=== PATIENT | female | born 1940 | race Caucasian/White ===

== ENCOUNTER → 2017-04-13 14:47 | Outpatient (CLI) | payer MEDICARE, SELFPAY ==
[2017-04-13 15:48] LABS: Absolute Neutrophil Count 3.6 X10^3/uL (2.0-7.7); Basophil# 0.03 X10^3/uL; Basophil% 0.5 % (0-1); Eosinophil# 0.31 X10^3/uL; Hematocrit 40.6 % (37-47); Hemoglobin 13.3 g/dl (12.0-15.0); Mean Corp Hgb Conc 32.8 g/gl (32-36); Mean Corpuscular Volume 97.8 fL (81-99); Monocyte# 0.58 X10^3/uL; Monocyte% 9.4 % (0-10); Neutrophil # 3.62 X10^3/uL (2.7-7.7); Neutrophil % 58.9 % (47-70); POSITIVE COUNT NO; POSITIVE DIFFERENTIAL NO; POSITIVE MORPHOLOGY NO; Platelet Count 122 K/mm3 (150-450); RBC Distribution Width CV 13.3 % (11.6-14.6); RBC Distribution Width SD 46.3 fl (35.1-43.9); Red Blood Count 4.15 M/mm3 (4.2-5.4); White Blood Count 6.2 K/mm3 (4.4-11.0)
[2017-04-13 16:51] LABS: ALB/GLOB Ratio 1.1 RATIO (0.9-2.4); AST(SGOT) 15 U/L (15-37); Alanine Aminotransfer ALT/SGPT 22 U/L (13-56); Albumin, Serum 3.8 g/dL (3.2-5.0); Alkaline Phosphatase 91 U/L (45-117); Anion Gap 8 (5-15); BUN 32 mg/dL (7-18); BUN/Creat Ratio 30.5 RATIO (10-20); Calcium,Total 8.8 mg/dL (8.5-10.1); Chloride 105 mmol/L (98-107); Cholesterol 174 mg/dL (200); Creatinine, Serum 1.05 mg/dL (0.55-1.02); EST Glomerular Filtration Rate 54 mL/min (>60); Est Glom Filt Rate - Afr Amer 65 mL/min (>60); Globulin 3.5 g/dL (2.2-4.2); Glucose 86 mg/dL (70-110); High Density Lipoprotein 49 mg/dL; Potassium 4.6 mmol/L (3.5-5.1); Protein, Total 7.3 g/dL (6.4-8.2); Sodium Level 140 mmol/L (136-145); Thyroid Stim Hormone (TSH) 1.41 uIU/mL (0.358-3.74); Triglycerides 242 mg/dL; Very Low Density Lipoprotein 48 mg/dL (5-40)
[2017-04-14 03:56] LABS: Rapid Plasmin Reagin (RPR) NONREACTIVE (NONREACTIVE)
[2017-04-14 08:36] LABS: Vitamin B12 221 pg/mL (211-911); Vitamin D,25 Hydroxy 20.2 ng/mL (19.95-100.01)
== END ==
PROVIDERS: Visit Provider Family Medicine Geriatric Medicine
DX: E55.9 Vitamin D deficiency, unspecified (principal); G30.9 Alzheimer's disease, unspecified; I10 Essential (primary) hypertension; E78.4 Other hyperlipidemia
CPT/HCPCS: 36415; 80053; 80061; 82306; 82607; 82746; 84443; 85025; 86592

== ENCOUNTER → 2017-04-17 15:21 | Outpatient (CLI) | payer MEDICARE, SELFPAY ==
[2017-04-17 16:37] LABS: Homocysteine 12.9 umol/L (3.2-10.7)
== END ==
PROVIDERS: Family Provider Family Medicine Geriatric Medicine; PCP Family Medicine Geriatric Medicine; Visit Provider Family Medicine Geriatric Medicine
DX: E53.8 Deficiency of other specified B group vitamins (principal)
CPT/HCPCS: 36415; 83090

== ENCOUNTER → 2017-07-13 09:31 | Outpatient (CLI) | payer MEDICARE, SELFPAY ==
[2017-07-13 15:39] LABS: ALB/GLOB Ratio 0.9 RATIO (0.9-2.4); AST(SGOT) 14 U/L (15-37); Alanine Aminotransfer ALT/SGPT 16 U/L (13-56); Albumin, Serum 3.2 g/dL (3.2-5.0); Alkaline Phosphatase 95 U/L (45-117); Anion Gap 7 (5-15); BUN 30 mg/dL (7-18); BUN/Creat Ratio 22.6 RATIO (10-20); Calcium,Total 9.1 mg/dL (8.5-10.1); Chloride 107 mmol/L (98-107); Cholesterol 188 mg/dL (200); Creatinine, Serum 1.33 mg/dL (0.55-1.02); EST Glomerular Filtration Rate 41 mL/min (>60); Est Glom Filt Rate - Afr Amer 50 mL/min (>60); Globulin 3.5 g/dL (2.2-4.2); Glucose 105 mg/dL (74-106); High Density Lipoprotein 40 mg/dL; Potassium 5.4 mmol/L (3.5-5.1); Protein, Total 6.7 g/dL (6.4-8.2); Sodium Level 140 mmol/L (136-145); Thyroid Stim Hormone (TSH) 2.15 uIU/mL (0.358-3.74); Triglycerides 328 mg/dL; Very Low Density Lipoprotein 66 mg/dL (5-40)
[2017-07-13 15:49] LABS: Absolute Lymphocyte Count 1.13 X10^3/ul (0.83-4.51); Absolute Neutrophil Count 1.9 X10^3/uL (2.0-7.7); Basophil# 0.02 X10^3/uL; Basophil% 0.5 % (0-1); Eosinophil# 0.17 X10^3/uL; Eosinophils% 4.5 % (0-5); Hemoglobin 11.8 g/dl (12.0-15.0); Lymphocyte # 1.13 X10^3/ul (4.0); Lymphocyte % 30.1 % (19-41); Mean Corp Hgb Conc 31.9 g/gl (32-36); Mean Corpuscular Hgb 32.1 pg (27.0-32.0); Mean Corpuscular Volume 100.5 fL (81-99); Mean Platelet Vol. 10.3 fl (6.2-12.0); Monocyte# 0.56 X10^3/uL; Monocyte% 14.9 % (0-10); Neutrophil # 1.87 X10^3/uL (2.7-7.7); Neutrophil % 49.7 % (47-70); Platelet Count 114 K/mm3 (150-450); RBC Distribution Width CV 14.2 % (11.6-14.6); RBC Distribution Width SD 50.9 fl (35.1-43.9); Red Blood Count 3.68 M/mm3 (4.2-5.4); White Blood Count 3.8 K/mm3 (4.4-11.0)
[2017-07-13 15:53] LABS: POSITIVE COUNT NO; POSITIVE DIFFERENTIAL NO; POSITIVE MORPHOLOGY NO
[2017-07-14 08:40] LABS: Vitamin D,25 Hydroxy 21.5 ng/mL (29.95-100.01)
== END ==
PROVIDERS: Family Provider Family Medicine Geriatric Medicine; PCP Family Medicine Geriatric Medicine; Visit Provider Family Medicine Geriatric Medicine
DX: I10 Essential (primary) hypertension (principal); E55.9 Vitamin D deficiency, unspecified
CPT/HCPCS: 36415; 80053; 80061; 82306; 84443; 85025

== ENCOUNTER → 2017-10-19 14:15 | Outpatient (CLI) | payer MEDICARE, SELFPAY ==
[2017-10-19 18:13] LABS: ALB/GLOB Ratio 0.9 RATIO (0.9-2.4); AST(SGOT) 14 U/L (15-37); Alanine Aminotransfer ALT/SGPT 24 U/L (13-56); Albumin, Serum 3.4 g/dL (3.2-5.0); Alkaline Phosphatase 146 U/L (45-117); Anion Gap 11 (5-15); BUN 21 mg/dL (7-18); BUN/Creat Ratio 17.5 RATIO (10-20); Calcium,Total 9.2 mg/dL (8.5-10.1); Chloride 105 mmol/L (98-107); Cholesterol 215 mg/dL (200); EST Glomerular Filtration Rate 46 mL/min (>60); Est Glom Filt Rate - Afr Amer 56 mL/min (>60); Globulin 3.7 g/dL (2.2-4.2); Glucose 100 mg/dL (74-106); High Density Lipoprotein 49 mg/dL; Potassium 4.9 mmol/L (3.5-5.1); Protein, Total 7.1 g/dL (6.4-8.2); Sodium Level 143 mmol/L (136-145); Thyroid Stim Hormone (TSH) 1.81 uIU/mL (0.358-3.74); Triglycerides 293 mg/dL; Very Low Density Lipoprotein 59 mg/dL (5-40)
[2017-10-19 18:59] LABS: Hematocrit 42.2 % (37-47); Hemoglobin 13.1 g/dl (12.0-15.0); Mean Corpuscular Hgb 30.1 pg (27.0-32.0); Neutrophil % 67.5 % (47-70); POSITIVE COUNT NO; POSITIVE DIFFERENTIAL NO; POSITIVE MORPHOLOGY NO; Platelet Count 146 K/mm3 (150-450); RBC Distribution Width SD 49.8 fl (35.1-43.9); Red Blood Count 4.35 M/mm3 (4.2-5.4)
[2017-10-19 19:00] LABS: Absolute Neutrophil Count 4.1 X10^3/uL (2.0-7.7); Basophil# 0.02 X10^3/uL; Basophil% 0.3 % (0-1); Eosinophil# 0.17 X10^3/uL; Eosinophils% 2.8 % (0-5); Lymphocyte % 19.9 % (19-41); Monocyte# 0.56 X10^3/uL; Monocyte% 9.3 % (0-10); Neutrophil # 4.08 X10^3/uL (2.7-7.7)
[2017-10-20 08:49] LABS: Vitamin D,25 Hydroxy 20.6 ng/mL (29.95-100.01)
== END ==
PROVIDERS: Family Provider Family Medicine Geriatric Medicine; PCP Family Medicine Geriatric Medicine; Visit Provider Family Medicine Geriatric Medicine
DX: E55.9 Vitamin D deficiency, unspecified (principal); I10 Essential (primary) hypertension; E78.4 Other hyperlipidemia
CPT/HCPCS: 36415; 80053; 80061; 82306; 84443; 85025

== ENCOUNTER 2017-12-27 23:05 | Inpatient (IN) | payer MEDICARE, SELFPAY ==
[2017-12-27 23:06] VITALS: BP 185/111; PULSE 92; RESP 30; TEMP 36.7; O2SAT 82; BMI 25.6
--- NOTE | 2017-12-27 23:15 | EKG12_ITS ---
Test Reason : SOB Blood Pressure : / mmHG Vent. Rate : 107 BPM Atrial Rate : 107 BPM P-R Int : 182 ms QRS Dur : 114 ms QT Int : 346 ms P-R-T Axes : 058 -08 130 degrees QTc Int : 461 ms Sinus tachycardia Incomplete left bundle branch block Left ventricular hypertrophy with repolarization abnormality Abnormal ECG Confirmed by ANGEL NAIK ([id number]), technical writer and editor KJ DELGADO ([id number]) on 01/09/2018 8:28:36 AM Referred By: LOYDA Confirmed By:ANGEL NAIK
--- NOTE | 2017-12-27 23:15 | RAD_ITS ---
STUDY: X-RAY CHEST REASON FOR EXAM: Female, 77 years old. Shortness of breath TECHNIQUE: Martinez frontal view COMPARISON: None. FINDINGS: The lungs are expanded. Interstitial prominence bilaterally, more significant at the lung bases. Early left basilar infiltrate cannot be excluded. Normal size heart. Normal mediastinum and jacki. There is prominence of the central pulmonary arteries. Calcified aortic arch and descending thoracic aorta. Degenerative changes of the thoracic spine. Normal visualized ribs, clavicles, and shoulders. There is no demonstrated abnormality of the visualized soft tissue structures of the upper abdomen. RAD/Chest 1 View (Portable) IMPRESSION: Central pulmonary vascular prominence. Interstitial densities bilaterally, more significantly in the lung bases. Early left basilar infiltrate cannot be excluded. Electronically Signed: Niraj Matute DO at 23:44 EDT Tel [phone], Service support ,
[2017-12-27 23:17] VITALS: O2SAT 83
[2017-12-27 23:18] VITALS: O2SAT 94
[2017-12-27 23:23] VITALS: BP 183/103; PULSE 110; RESP 31; O2SAT 96
[2017-12-27] MEDS: MethylPREDNISolone 125 MG/2 ML Vial IV (23:27)
[2017-12-27] MEDS: Ipratropium/Albuterol Sulfate 3 ML AMPUL.NEB INHALATION ×2 (23:27→23:39)
[2017-12-27 23:39] LABS: Absolute Lymphocyte Count 3.39 X10^3/ul (0.83-4.51); Absolute Neutrophil Count 6.4 X10^3/uL (2.0-7.7); Basophil# 0.04 X10^3/uL; Basophil% 0.4 % (0-1); Eosinophil# 0.36 X10^3/uL; Eosinophils% 3.2 % (0-5); Hematocrit 47.5 % (37-47); Hemoglobin 14.8 g/dl (12.0-15.0); Lymphocyte # 3.39 X10^3/ul (4.0); Lymphocyte % 30.2 % (19-41); Mean Corp Hgb Conc 31.2 g/gl (32-36); Mean Corpuscular Volume 99.6 fL (81-99); Mean Platelet Vol. 11.6 fl (6.2-12.0); Monocyte# 1.01 X10^3/uL; Neutrophil # 6.36 X10^3/uL (2.7-7.7); Neutrophil % 56.8 % (47-70); Platelet Count 183 K/mm3 (150-450); RBC Distribution Width CV 15.1 % (11.6-14.6); RBC Distribution Width SD 54.1 fl (35.1-43.9); Red Blood Count 4.77 M/mm3 (4.2-5.4); White Blood Count 11.2 K/mm3 (4.4-11.0)
[2017-12-27 23:40] VITALS: PULSE 90; PULSE 92; RESP 12; RESP 27; O2SAT 98
--- NOTE | 2017-12-27 23:41 | CPS ---
DR. ORTIZ IN ER AND GAVE ORDER FOR DUONEB TIMES [address] ORTIZ ALSO GAVE ORDER FOR BIPAP SETUP IPAP 12 EPAP 6.
[2017-12-27 23:42] LABS: POSITIVE COUNT NO; POSITIVE DIFFERENTIAL NO; POSITIVE MORPHOLOGY NO
[2017-12-27 23:45] VITALS: PULSE 88; RESP 28
--- NOTE | 2017-12-27 23:51 | CT_ITS ---
STUDY: CTA CHEST REASON FOR EXAM: Female, 77 years old. Shortness of breath and elevated d-dimer RADIATION DOSAGE (If Supplied By Facility): CTDIvol = ( 18.37 ) mGy, DLP = ( 688.92 ) mGycm TECHNIQUE: The examination was performed with the intravenous administration of 100 ml of Isovue 370 contrast material. Post-processing of the angiographic images was performed, with multiplanar reformation and 3D reconstruction. # of Images: 1153 Individualized dose optimization techniques were used for this CT. COMPARISON: None. FINDINGS: Normal enhancement of the main pulmonary artery and right and left pulmonary arteries. Normal enhancement of the bilateral peripheral pulmonary arteries. There is no demonstrated pulmonary embolism. Thoracic aorta demonstrates no aneurysmal dilatation or dissection. There is mild atheromatous and atherosclerotic plaque formation. The arch and descending segment. Normal heart and pericardium. Shotty mediastinal and hilar lymph nodes Normal hilar regions. Normal visualized trachea and bronchi. The lungs are well expanded. Patchy airspace infiltration throughout the left lower lobe and lingula, with less subtle groundglass opacities noted within the left upper lobe, within the basilar segments of the right lower lobe, and lateral segment of the right middle lobe. Small bilateral pleural effusions, left greater than right, with associated bilateral dependent atelectasis. No pneumothorax. Normal chest wall structures. Vertebral plana compression fracture deformity of the T12 vertebral body with retropulsion of the posterior-superior cortex, resulting in approximately 50% spinal canal narrowing. There is mild depression of the superior endplates of the T3 and T4 vertebral bodies. Old healed fracture deformity of the sternum. Mild multilevel degenerative change of the spine is noted. Multiple old healed rib fracture formation noted bilaterally. Visualized portions of the upper abdomen are unremarkable. CT/CTA Chest W/WO Contrast IMPRESSION: 1. No evidence of acute pulmonary embolism. 2. Multifocal pneumonia, most prominent within the left lower lobe. 3. Small bilateral pleural effusions, left greater than right. 4. Vertebral plana compression fracture deformity at T12 with mild depression of the superior endplates at T3 and T4, all of which are of uncertain acuity, though likely chronic T12. Electronically Signed: Bernardo Mittal MD at 2:16 EDT Tel , Service support ,
[2017-12-28] VITALS (23 sets, daily range): BP systolic 47–185; BP diastolic 45–90; PULSE 34–88; RESP 12–24; TEMP 36.4–37; O2SAT 92–100; BMI 25.6; BMI 32.3
[2017-12-28] MEDS: Furosemide 40 MG/4 ML Vial IV (00:06)
[2017-12-28 00:08] LABS: BNP,B-Type NATRIURETIC PEPTIDE 516.6 pg/mL (0-100)
[2017-12-28] MEDS: Albuterol 2.5 MG/3 ML VIAL.NEB. INHALATION ×3 (00:12→00:26)
[2017-12-28 00:52] LABS: Anion Gap 7 (5-15); BUN 31 mg/dL (7-18); BUN/Creat Ratio 25.2 RATIO (10-20); Calcium,Total 8.4 mg/dL (8.5-10.1); Chloride 110 mmol/L (98-107); Creatinine, Serum 1.23 mg/dL (0.55-1.02); EST Glomerular Filtration Rate 45 mL/min (>60); Est Glom Filt Rate - Afr Amer 54 mL/min (>60); Estimated Creatinine Clearance 29.33 ml/min; Glucose 174 mg/dL (74-106); Potassium 5.5 mmol/L (3.5-5.1); Sodium Level 141 mmol/L (136-145)
--- NOTE | 2017-12-28 01:29 | CPS ---
patient transported to CT scan on bipap with settings of ipap 12 epap 6 rr 12 30%. patient was 97% on current settings. no adverse reaction noted to transport.
--- NOTE | 2017-12-28 02:24 | ED.VISSUMM ---
- ER Visit Summary Date of Service: 12/28/17 Chief Complaint: [Shortness of breath] History of Present Illness: The patient is a 77 F [presents the emergency department with complaint of shortness of breath that started this evening. Patient came out to get her evening meds and was complaining of feeling very dyspneic. Per daughter who is the caregiver apparently she had been complaining of some mild shortness of breath over the last 2 nights especially with exertion. She denies any chest pain. She has had no fever. She said slight cough. Patient with history of hypertension and dementia. Patient is not a good historian.] Patient had been a relatively heavy smoker for many years however she quit 4 years ago. Patient was smoking 2 packs a day. Physical Examination: HEENT-PERRLA, EOMI. Cranial nerves II through XII grossly intact. TMs clear. Mucous membranes moist. No adenopathy. Cardiovascular-regular rate and tachycardic. No murmurs auscultated. Lungs-diminished bilaterally with expiratory wheezes bilaterally. Patient is tachypneic with accessory muscle use noted. Patient has conversational dyspnea. Abdomen-normoactive bowel sounds, soft, nontender, no rebound or rigidity, no peritoneal signs. Extremities-intact ?4, normal range of motion, normal pulses, atraumatic] Test Results: [EKG obtained on arrival shows sinus rhythm with a ventricular rate of 107 bpm with an incomplete left bundle branch block and some LVH noted. CBC with differential showed a white count of 11.2, hemoglobin 15, hematocrit 47.5, platelets 183. Chemistries unremarkable. Creatinine was 1.23 and BUN 31. Troponin was 0.248. BNP was 516. D-dimer was elevated at 3.20. Chest x-ray initially obtained showed prominence of central pulmonary arteries and questionable left basilar infiltrate. CTA of the chest to rule out PE was obtained which was negative for PE or dissection. Patient was noted to have small bilateral effusions and multifocal pneumonia. Patient also had T12 compression fracture is suspected to be chronic.] Emergency Department Course and Treatment: [Patient initially on arrival was started on BiPAP and was given DuoNeb aerosols. Patient was started on Solu-Medrol 125 mill grams IV. Blood cultures were ordered. Patient started on Rocephin and Zithromax.] Treatment Plan: [Patient will be admitted] Disposition: [Admit] Impression: [Pneumonia Respiratory failure Hypoxemia COPD-undiagnosed] Elevated troponin-suspect may be related to non-ST PR versus strain due to pneumonia/respiratory failure This note was generated with [employer] dictation software. It may contain incorrect words, spelling, and punctuation that were not noted in review of the chart prior to signing ED Disposition - Plan for ED Patient: Chief Complaint: Shortness of Breath Referrals: Matthew Ho Chi, MD [Primary Care Provider] -
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
--- NOTE | 2017-12-28 02:28 | ED.DCSUM_ITS ---
- ER Visit Summary Date of Service: 12/28/17 Chief Complaint: [Shortness of breath] History of Present Illness: The patient is a 77 F [presents the emergency department with complaint of shortness of breath that started this evening. Patient came out to get her evening meds and was complaining of feeling very dyspneic. Per daughter who is the caregiver apparently she had been complaining of some mild shortness of breath over the last 2 nights especially with exertion. She denies any chest pain. She has had no fever. She said slight cough. Patient with history of hypertension and dementia. Patient is not a good historian.] Patient had been a relatively heavy smoker for many years however she quit 4 years ago. Patient was smoking 2 packs a day. Physical Examination: HEENT-PERRLA, EOMI. Cranial nerves II through XII grossly intact. TMs clear. Mucous membranes moist. No adenopathy. Cardiovascular-regular rate and tachycardic. No murmurs auscultated. Lungs-diminished bilaterally with expiratory wheezes bilaterally. Patient is tachypneic with accessory muscle use noted. Patient has conversational dyspnea. Abdomen-normoactive bowel sounds, soft, nontender, no rebound or rigidity, no peritoneal signs. Extremities-intact ?4, normal range of motion, normal pulses, atraumatic] Test Results: [EKG obtained on arrival shows sinus rhythm with a ventricular rate of 107 bpm with an incomplete left bundle branch block and some LVH noted. CBC with differential showed a white count of 11.2, hemoglobin 15, hematocrit 47.5, platelets 183. Chemistries unremarkable. Creatinine was 1.23 and BUN 31. Troponin was 0.248. BNP was 516. D-dimer was elevated at 3.20. Chest x-ray initially obtained showed prominence of central pulmonary arteries and questionable left basilar infiltrate. CTA of the chest to rule out PE was obtained which was negative for PE or dissection. Patient was noted to have small bilateral effusions and multifocal pneumonia. Patient also had T12 compression fracture is suspected to be chronic.] Emergency Department Course and Treatment: [Patient initially on arrival was started on BiPAP and was given DuoNeb aerosols. Patient was started on Solu- Medrol 125 mill grams IV. Blood cultures were ordered. Patient started on Rocephin and Zithromax.] Treatment Plan: [Patient will be admitted] Disposition: [Admit] Impression: [Pneumonia Respiratory failure Hypoxemia COPD-undiagnosed] Elevated troponin-suspect may be related to non-ST HI versus strain due to pneumonia/respiratory failure This note was generated with [employer] dictation software. It may contain incorrect words, spelling, and punctuation that were not noted in review of the chart prior to signing ED Disposition - Plan for ED Patient: Chief Complaint: Shortness of Breath Referrals: Matthew Ho Chi, MD [Primary Care Provider] -
[2017-12-28] MEDS: Ceftriaxone 1 GM/50 ML BAG IV (02:31)
--- NOTE | 2017-12-28 02:38 | ED.RN ---
PT PLACED ON 6L NC,PER MD REQUEST.
--- NOTE | 2017-12-28 03:16 | ED.RN ---
0305 O2 WAS DECREASED TO 5L NC,BUT PT'S O2 SAT UPPER 80'S,HOSPITALIST AT THE BEDSIDE AND REQUESTED HIGH FLOW O2 AT 6L.RT AWARE OF REQUEST AND PLACED ON HIGH FLOW.
--- NOTE | 2017-12-28 03:17 | EKG12_ITS ---
Test Reason : ABNORMAL RYTHM Blood Pressure : / mmHG Vent. Rate : 077 BPM Atrial Rate : 077 BPM P-R Int : 162 ms QRS Dur : 080 ms QT Int : 384 ms P-R-T Axes : 042 -24 137 degrees QTc Int : 434 ms Normal sinus rhythm Possible recent or acute anterior wall MS Septal infarct , age undetermined Abnormal ECG Confirmed by ANGEL NAIK ([id number]), content editor KJ DELGADO ([id number]) on 01/09/2018 8:29:20 AM Referred By: DR. TAO Confirmed By:ANGEL NAIK
--- NOTE | 2017-12-28 03:39 | CPS ---
PATIENT OFF BIPAP AT TIME OF VISIT. HOSPITALIST AT BEDSIDE AND PLACED PATIENT ON 6 LPM NC. PATIENT WAS 87%. HOSPTIALIST REQUESTED HIGH FLOW NC. PATIENT PLACED ON HIGH FLOW NC WITH A SP02 OF 92% ON 11 LPM.
[2017-12-28 03:50] LABS: Anion Gap 10 (5-15); BUN 31 mg/dL (7-18); BUN/Creat Ratio 24.4 RATIO (10-20); Calcium,Total 8.6 mg/dL (8.5-10.1); Chloride 105 mmol/L (98-107); Creatinine, Serum 1.27 mg/dL (0.55-1.02); EST Glomerular Filtration Rate 43 mL/min (>60); Est Glom Filt Rate - Afr Amer 52 mL/min (>60); Estimated Creatinine Clearance 28.41 ml/min; Glucose 133 mg/dL (74-106); Potassium 5.2 mmol/L (3.5-5.1); Sodium Level 142 mmol/L (136-145)
--- NOTE | 2017-12-28 04:30 | ECHOD_ITS ---
Reason For Study: DYSPNEA Procedure This was a 2D Doppler, Color Flow transthoracic echocardiogram. Exam performed portable in patient room. Left Ventricle Normal LV size. Mild to moderate segmental systolic dysfunction (see wall motion). The estimated ejection fraction is 40 %. There are regional wall motion abnormalities as specified. [place] : Akinetic. Mid-anteroseptal : Hypokinetic. Mid-Anterior : Hypokinetic. Anterior [place] : Severely Hypokinetic. Right Ventricle Normal RV size. Normal systolic function. Atria Normal left atrium. Normal right atrium. Mitral Valve Normal mitral valve. Tricuspid Valve Normal tricuspid valve. Mild (1+) tricuspid valve insufficiency. Pulmonary artery systolic pressure is 40 mmHg. Aortic Valve Normal aortic valve. Trisinus/trileaflet aortic valve. Pulmonic Valve The pulmonic valve is not well visualized. Great Vessels Normal aortic root. The pulmonary artery is normal size. Normal inferior vena cava. Pericardium/Pleural No pericardial effusion. Medication 22 gauge I.V. with prn adaptor inserted into left arm. Diluted definity 3ml given slow IV push to enhance endocardial definition. MMode/2D Measurements & Calculations RVDd: 3.2 cm Ao root diam: 2.9 cm LAV(MOD-bp): 36.0 ml LAV(MOD-bp) Indexed: 19.9 ml/m2 LAV(MOD-sp2): 43.7 ml LAV(MOD-sp4): 28.3 ml LVAd ap4: 32.8 cm2 SV(MOD-sp4): 53.5 ml SV(sp4-el): 57.2 ml EDV(MOD-sp4): 105.9 ml EDV(sp4-el): 113.2 ml LVAs ap4: 22.0 cm2 ESV(MOD-sp4): 52.4 ml ESV(sp4-el): 56.1 ml EF(MOD-sp4): 50.5 % EF(sp4-el): 50.5 % LA A4 area: 12.9 cm2 RA A4 area: 10.0 cm2 Time Measurements MV dec time: 0.27 sec Doppler Measurements & Calculations MV E max danny: 68.8 cm/sec Lat Peak E' Danny: 4.8 cm/sec Med Peak E' Danny: 3.2 cm/sec MV A max danny: 106.5 cm/sec E/E' lat: 14.2 E/E' med: 21.7 MV E/A: 0.65 Ao V2 max: 115.0 cm/sec LV V1 max: 93.5 cm/sec PA V2 max: 131.4 cm/sec Ao max P.3 mmHg LV V1 max P.5 mmHg TR max danny: 296.7 cm/sec TR max P.3 mmHg Interpretation Summary Normal LV size. Mild to moderate segmental systolic dysfunction (see wall motion). The estimated ejection fraction is 40 %. Pulmonary artery systolic pressure is 40 mmHg. Contrast injection was performed. Ordering Physician: Cuong Gonzalez Referring Physician: ZITA SHEN CHI Performed By: Veronica Bruce, VALERIANO, RVT
[2017-12-28 05:21] LABS: Allen Test POS; Base Excess 1 mmol/L (-2 to +2); Bicarbonate 26.7 mmol/L (22-26); Blood Gas Specimen Type ART; O2 Delivery Device Nasal Can; PO2 115 mmHG (75-100); SITE R Radial; SO2 98 % (95-99); Total Carbon Dioxide 28 mmol/L; pCO2 49.1 mmHg (35-45); pH 7.34 (7.35-7.45)
[2017-12-28] MEDS: Ipratropium/Albuterol Sulfate 3 ML AMPUL.NEB INHALATION ×2 (06:42→11:26)
--- NOTE | 2017-12-28 06:59 | EKG12_ITS ---
Test Reason : CP Blood Pressure : / mmHG Vent. Rate : 070 BPM Atrial Rate : 070 BPM P-R Int : 150 ms QRS Dur : 080 ms QT Int : 426 ms P-R-T Axes : 042 -20 145 degrees QTc Int : 460 ms Normal sinus rhythm Left ventricular hypertrophy Septal infarct , age undetermined T wave abnormality: consider myocardial ischemia ([id number]) Abnormal ECG Confirmed by KATHLEEN MILLS, CHARO ([id number]), editor farm journal KJ DELGADO ([id number]) on 01/11/2018 4:14:46 PM Referred By: DINH Confirmed By:CHARO WANG MD
[2017-12-28 07:14] LABS: Hematocrit 41.6 % (37-47); Hemoglobin 13.1 g/dl (12.0-15.0); Mean Corp Hgb Conc 31.5 g/gl (32-36); Mean Corpuscular Hgb 30.9 pg (27.0-32.0); Mean Corpuscular Volume 98.1 fL (81-99); Mean Platelet Vol. 11.1 fl (6.2-12.0); Platelet Count 126 K/mm3 (150-450); RBC Distribution Width CV 14.9 % (11.6-14.6); RBC Distribution Width SD 51.6 fl (35.1-43.9); Red Blood Count 4.24 M/mm3 (4.2-5.4); White Blood Count 8.3 K/mm3 (4.4-11.0)
[2017-12-28 07:16] LABS: Scan Indicated on CBC? Y/N NO
--- NOTE | 2017-12-28 07:19 | CON.PCM_ITS ---
Reason for Consult Date of Consultation: 12/28/17 Reason for Consultation: Shortness of breath and abnormal EKG and troponin History of Present Illness: The patient is a 77 F presents the emergency department with complaint of shortness of breath that started this evening. Patient came out to get her evening meds and was complaining of feeling very dyspneic. Per daughter who is the caregiver apparently she had been complaining of some mild shortness of breath over the last 2 nights especially with exertion. She she also complained of some chest discomfort when she presented.. She has had no fever. She said slight cough. Patient with history of hypertension and dementia. Patient is not a good historian.] Patient had been a relatively heavy smoker for many years however she quit 4 years ago. Patient was smoking 2 packs a day. Denies any palpitations or paroxysmal nocturnal dyspnea or pedal edema. Blood work was done in the emergency room and demonstrated a mildly elevated troponin but also an elevated d-dimer. She therefore underwent a CT scan of her chest which did not demonstrate any evidence of pulmonary embolism. [] Past Medical History Allergies/Adverse Reactions: Allergies No Known Allergies Allergy (Verified 12/27/17 23:08) Home Medications: Ambulatory Orders Medication Instructions Recorded Aspirin [Aspirin EC] 81 mg PO DAILY 12/27/17 Carvedilol 12.5 mg PO DAILY 12/27/17 Cyanocobalamin (Vitamin B-12) 1 tab PO DAILY 12/27/17 [Vitamin B-12] Donepezil HCl [Aricept] 1 tab PO QHS 12/27/17 Gabapentin [Neurontin] 1 tab PO QHS 12/27/17 Lisinopril [Zestril] 1 tab PO DAILY 12/27/17 Memantine HCl 1 tab PO BID 12/27/17 Past Medical History (Chronic Problems): Chronic Problems (Last Updated 12/28/17 @ 03:45 by Cuong Gonzalez MD) Dementia (Chronic) Surgical History: - - hip surgery - *Family History Maternal History Items: - - Patient does not know if her family had any medical condition. Paternal History Items: - - Patient does not know if her family had any medical condition. Lives: With Family Smoking Status: Former smoker Alcohol: None Drugs: None Review of Systems - Review of Systems General: Denies: Fever, Night Sweats, Fatigue Cardiovascular: Reports: Chest Discomfort, Chest Discomfort at Rest, Shortness of Breath. Denies: Orthopnea, PND, Peripheral Edema, Palpitations, Lightheadedness, Dizziness, Near Syncope, Syncope Respiratory: Denies: Cough, Sputum Production, Hemoptysis Gastrointestinal: Denies: Hematemesis, Hematochezia, Melena Genitourinary: Denies: Dysuria, Hematuria Skin: Denies: Rash Subjectve: Pleasant lady in no apparent distress Objective: Vital Signs Temp Pulse Resp BP Pulse Ox 97.6 F L 79 18 146/79 H 98 12/28/17 04:20 12/28/17 04:20 12/28/17 06:45 12/28/17 04:20 12/28/17 06:45 Oxygen Flow Rate (L/min) 6 Oxygen Delivery Method Nasal Cannula Weight: 176 lb 5.917 oz Body Mass Index (BMI) 32.3 Intake and Output for Last 24 Hours 12/26/17 12/27/17 12/28/17 23:59 23:59 23:59 Intake Total 327 / 327 Output Total 300 / 300 Balance General: Awake, Alert, Oriented x 3 HEENT: PERRL, EOMI, Sclera Non Icteric Neck: Supple, Good ROM, No Lymph Node Enlargement Lungs: Clear to auscultation Cardiovascular: Regular Rhythm, Normal S1, Normal S2, No Murmurs, No Rubs, No Gallops Vascular: No Carotid Bruits, Normal Femoral Pulses, Normal Radial Pulses, Normal Dorsalis Pedal Pulse, Normal Posterior Tibial Pulses Abdomen: Bowel Sounds Present, Soft, Non Tender, No HSM, No Organomegaly Extremities: No Cyanosis, No Clubbing, No edema Neurological: No Focal Motor or Sensory Deficit 12/27/17 23:20: WBC 11.2 H, RBC 4.77, Hgb 14.8, Hct 47.5 H, MCV 99.6 H, MCH 31.0, MCHC 31.2 L, RDW 15.1 H, RDW Differential 54.1 H, Plt Count 183, MPV 11.6, Immature Gran % (Auto) 0.400, Neut % (Auto) 56.8, Lymph % (Auto) 30.2, Wilson % (Auto) 9.0, Eos % (Auto) 3.2, Baso % (Auto) 0.4, Absolute Neuts (auto) 6.4, Total Counted Not Reportable 12/27/17 23:20: D-Dimer Quant (PE/DVT) 3.20 H* 12/27/17 23:20: Sodium Cancelled, Potassium Cancelled, Chloride Cancelled, Carb on Dioxide Cancelled, Anion Gap Cancelled, BUN Cancelled, Creatinine Cancelled, Est GFR (MDRD) Af Amer Cancelled, Est GFR (MDRD) Non-Af Cancelled, BUN/Creatinine Ratio Cancelled, Glucose Cancelled, Calcium Cancelled, Troponin I Cancelled 12/27/17 23:20: B-Natriuretic Peptide 516.6 H 12/28/17 00:25: Sodium 141, Potassium 5.5 H, Chloride 110 H, Carbon Dioxide 24.0, Anion Gap 7, BUN 31 H, Creatinine 1.23 H, Est GFR (MDRD) Af Amer 54 L, Est GFR (MDRD) Non-Af 45 L, BUN/Creatinine Ratio 25.2 H, Glucose 174 H, Calcium 8.4 L, Troponin I 0.248 H 12/28/17 03:35: Sodium 142, Potassium 5.2 H, Chloride 105, Carbon Dioxide 27.0, Anion Gap 10, BUN 31 H, Creatinine 1.27 H, Est GFR (MDRD) Af Amer 52 L, Est GFR (MDRD) Non-Af 43 L, BUN/Creatinine Ratio 24.4 H, Glucose 133 H, Calcium 8.6 12/28/17 03:35: Troponin I 10.900 H* 12/28/17 05:15: pH 7.34 L, Bicarbonate Actual 26.7 H, POC Total CO2 28, Base Excess 1, O2 Saturation 98, ABG pCO2 49.1 H, ABG pO2 115 H, Levon Test POS Rhythm: EKG: ECHO: Stress Test: Cardiac Cath: PCI: CT Surgery: Holter monitor: EPS: PPM: CXR: Chest CT Scan: Assessment/Plan 1. Non-ST elevation myocardial infarction Patient presents with shortness of breath and EKG changes and is noted to have a non-ST elevation myocardial infarction. My recommendation would be to start her on aspirin Brilinta 180 mg Obtain echocardiogram to assess left ventricular function Carvedilol 12.5 mg twice a day Would recommend a cardiac catheterization. The risk benefits alternatives have been explained to her she understands and agrees to proceed. 2. Hypertension * Patient does have a history of hypertension * We will continue current medications with carvedilol 12.5 mg twice a day and lisinopril 10 mg a day. * 3. Congestive heart failure * Patient presented with shortness of breath and likely has congestive heart failure which appears to be acute systolic. The above is likely secondary to coronary artery disease as well as hypertensive heart disease. My recommendation at this particular time would be to obtain an echocardiogram to assess her left ventricular function Continue lisinopril Lasix 40 mg daily Depending on the findings of the cardiac catheterization further recommendations will be made. Thank you for allowing me to participate in the care of your patient. Please don't hesitate to call if any issues arise
--- NOTE | 2017-12-28 07:43 | NURSING ---
Attempted to speak with son about patient's heart catheterization this morning. Message left on voicemail for phone number [phone] to return call for consent.
--- NOTE | 2017-12-28 07:43 | NURSING ---
Updated Dr. Evans of patients 26.7 Troponin level and that RN is waiting for son to return call for consent of heart catheterization.
[2017-12-28 07:52] LABS: Partial Thromboplast Time 25.2 Seconds (24.1-36.2)
[2017-12-28 08:01] LABS: Prothrombin Time (Protime)PT. 13.4 SECONDS (11.7-14.9)
[2017-12-28] MEDS: Aspirin 325 MG Tablet PO (08:40)
[2017-12-28] MEDS: TICAGRELOR 90 MG TABLET 180 MG PO (08:40)
[2017-12-28] MEDS: 0.9% Normal Saline 1,000 ML 15 ML IV (08:40)
[2017-12-28] MEDS: Lisinopril 10 MG Tablet PO (08:41)
[2017-12-28] MEDS: Carvedilol 12.5 MG Tablet PO (08:41)
--- NOTE | 2017-12-28 08:43 | NURSING ---
Patient able to get in touch with son. Obtained verbal consent for heart catheterization. Consent verified with CHARLINE Connollystrategic marketing manager nurse.
[2017-12-28 09:45] LABS: Cholesterol 229 mg/dL (200); High Density Lipoprotein 56 mg/dL; Triglycerides 75 mg/dL; Very Low Density Lipoprotein 15 mg/dL (5-40)
--- NOTE | 2017-12-28 10:21 | CASEMGMT ---
Face to Face with patient for initial transition planning/care coordination assessment. CHARLINE CHÁVEZ introduced self and role at [facility], pt voices understanding and consents to assessment at this time. Pt is sitting up in bed in no distress at this time. Pt is A/O x4 at this time and answers all questions appropriately at this time. Care providers, pharmacy, and demographics verified at this time. PCP: [facility] Specialists: Pt states no current specialists at this time. Preferred Pharmacy: [facility] Insurance: [facility] PPO [facility] Living Will/HPOA: Pt states that she has LW/HPOA and that her son, Simone Guardado, is HPOA. Pt's AD's are not on file at [facility] at this time and son to bring in when available. LNOK: Mireya Guardado, son and daughter in law Living Arrangements: Pt states lives with son and daughter in law in house and states she does not have to worry about any stairs. Pt states that she has someone there with her 03/10 as her son works nights and sleeps during day but states she can easily call him if she needs him for anything. Pt states that her daughter in law helps her with her meds and bathing. Pt states she dresses self and is able to get own meals. Pt states no concerns at home at this time. Transportation: Pt states her son or daughter in law drive and she states no transportation concerns at this time. DME/HHC: Pt states she has the following DME: grab bars, shower chair, walker, cane, and raised toilet seat. Pt states no need for any further DME at this time. Pt states she has had HHC and been to a SNF in the past but is unsure of names at this time. Pt states she is willing to have HHC if therapy recommends at discharge and states for son to make decision on which company. Pt voices no concerns with going home at time of discharge. Pt states does not smoke or drink ETOH. Pt states no further concerns/needs at this time. CM to follow therapy notes and for any further discharge planning/needs. CM to also speak with family when available. Advised pt to ask for CM if any further questions/concerns/needs arise, voices understanding. Plan: Home w/ family [place] CHARLINE CHÁVEZ
--- NOTE | 2017-12-28 11:32 | CASEMGMT ---
According to [facility] website, the following are in-network tertiary facilities: [facility], [place], [facility], [place], [facility], [facility], [place], [facility], and . Kendrick OLIVIER CM
--- NOTE | 2017-12-28 11:38 | NURSING ---
Report called to industrial laborer
--- NOTE | 2017-12-28 12:42 | NURSING ---
Report called to Samara PRESIDING STEWARD.
--- NOTE | 2017-12-28 12:45 | PCM.PN.BLA ---
Progress Note Patient underwent cardiac catheterization today which demonstrated the following: Severe distal left main coronary artery stenosis. Left anterior descending artery which is totally occluded. Right coronary artery which is totally occluded. Dominant left circumflex artery with diffuse disease. Elevated left ventricular end-diastolic pressure. Hypertension. Based on the above angiographic findings an intra-aortic balloon pump was placed successfully without incident and arrangements will be made to transfer the patient to a tertiary care institution.
[2017-12-28] MEDS: HEPARIN/D5w 25,000 UNITS 25,000 UNITS/250 ML IV.SOLN. 9 UNITS IV (13:54)
--- NOTE | 2017-12-28 16:41 | CL.D_ITS ---
Patient Name: STEPHANIE VALLEJO Study Date: 12/28/2017 Performing: Andrew Evans MD Ht: 62 inches 157 cm : 1940 Wt: 176.6 lbs 80 kg Age: 77 Gender: female BSA: 1.81 PROCEDURE(S) PERFORMED [id number] INSERTION CLINICAL PROFILE AND INDICATIONS Indications: ACS <= 24 hrs Heart Failure: NYHA Class: 3, Newly Diagnosed: Yes, Heart Failure Type: Systolic Stress/Imaging Stress/Image Study Performed: No CONCLUSIONS Severe triple-vessel disease involving a distal left main stenosis, totally occluded left anterior de scending artery, nondominant right coronary artery, severely diseased left circumflex artery, and derrell vated left ventricular end-diastolic pressure. RECOMMENDATIONS Surgery consult for coronary revascularization Placement of an intra-aortic balloon pump. Above is due to the severe coronary artery disease in the congestive heart failure and elevated left ventricular end-diastolic pressure DESCRIPTION OF PROCEDURE The patient arrived to the procedure lab. The risks and benefits of the procedure as well as a full d escription of our services here and current unavailability of surgical backup were fully explained to the patient and/or their significant other prior to the catheterization. The Timeout was completed, verifying the correct patient and procedure. The patient's procedural site was prepped and draped in the usual fashion. Local anesthetic was given subcutaneously to right radial region with Lidocaine 2% . Using a modified Seldinger technique, arterial access was obtained via the right radial artery, a 6 Fr sheath was inserted., arterial access was obtained via the right femoral artery, an 8Fr sheath was inserted. Left Coronary Artery selective angiography was performed in multiple views using a 5 Fr. 4.0 [place] catheter. Right Coronary Artery selective angiography was then performed in multiple views using a 5 Fr. 4.0 [place] catheter. LV to AO pullback pressures were then recorded.Arrow 30cc 7.5F Ultr aFlex IABP - Qty: 1 Each Part #: [id number], A 30cc IABP catheter was inserted into the right femoral rand ry, IABP settings: 1:1, The IABP catheter and sheath were secured in place, IABP Augumented BP: 162 m mHg Systemic BP: 138/63 mmHgThe arterial sheath was pulled and a TR Band was applied for hemostasis. 13cc of air CORONARY ANGIOGRAPHY DOMINANCE: Left Dominant LEFT HEART ASSESSMENT Left Ventricular Ejection Fraction: by Echo 45 % Anterior Akinesis Depressed Left Ventricular systolic function LEFT MAIN: Mild calcification, 80 distal irregular % Stenosis LEFT ANTERIOR DECENDING ARTERY: OSTIAL LAD: is occluded CIRCUMFLEX ARTERY: PROX CIRC: 50 % Stenosis MID CIRC: 80 % Stenosis OM 1: Proximal - Mild luminal irregularities OM 2: Mid - 60 % Stenosis 1ST LEFT PLV: Mild luminal irregularities less than 30% LT PDA: Left PDA: Proximal - Mild luminal irregularities less than 30% RIGHT CORONARY ARTERY: Moderate luminal irregularities up to 50% COMPLICATIONS No Complications PROCEDURE MEDICATIONS Versed 0.5 mg IV Fentanyl 25 mcg IV Versed 1 mg IV Oxygen: 3 L/min via nasal cannula Heparin 3000 unit(s) IV 12/28/2017 12:11:12 Heparin 25,000u / 250ml D5W @ 800 u/hr IV started 12/28/2017 12:32:28 Nitro 200 mcg IC 12/28/2017 12:11:06 SUMMARY OF HEMODYNAMIC DATA Time AIR REST ECG 12:06:29 AO 142/67 (95) SA 12:13:52 LV 178/21, 34 12:20:48 LV 186/24, 30 12:20:55 LVp 172/20, 37 12:21:07 AOp 168/79 (110) 12:21:12 Signed By Andrew Evans MD On 12/28/2017 16:40:36 Andrew Evans MD
[2017-12-29 16:20] LABS: Mycoplasma Pneum AB IgG < 100 U/mL (0-99); Mycoplasma pneum. AB IgM < 770 U/mL (0-769)
--- NOTE | 2017-12-30 19:22 | DS.PCM_ITS ---
Discharge Date and Diagnosis Date of Admission: 12/28/17 Date of Discharge: 12/28/17 - Primary Discharge Diagnosis #1 non-STEMI #2 acute systolic congestive heart failure #3 acute hypoxic respiratory failure secondary to acute systolic congestive heart failure #4 severe triple-vessel coronary artery disease #5 hypertension #6 dementia - Secondary Discharge Diagnosis Chronic Problems (Last Updated 12/28/17 @ 03:45 by Cuong Gonzalez MD) Dementia (Chronic) Hospital Course and Treatment Procedures: 2-D Echocardiogram, Cardiac catheterization, - - Placement of an intra-aortic balloon pump Summary of Care Provided: The patient is a 77 year old F was seen in the emergency room at [facility] with chief complaint of shortness of breath. Patient denied any chest pain. Patient had a history of hypertension and dementia and was not a good informant. Evaluation in the emergency room included an EKG which showed sinus rhythm with an incomplete left bundle branch block, CBC showed a white blood cell count of 11.2, blood chemistries were unremarkable, creatinine was 1.23, BUN was 31. Troponin was 0.24, beta natruretic peptide was 516. D-dimer was elevated at 3.2, CT of the chest was performed to rule out PE and was negative for PE or dissection, patient was noted to have bilateral effusions and multifocal infiltrates. Initially it was thought that the patient had pneumonia, she was admitted to PCU and given IV antibiotics and seen in consultation by cardiology, cardiology felt that the patient was in congestive heart failure and follow-up cardiac enzymes were noted to be elevated indicating a non-STEMI. Patient underwent an echocardiogram which showed a reduced ejection fraction at 40% along with evidence of pulmonary hypertension. Patient was taken to the cardiac Breakfast Server where it was noted that she had severe triple- vessel disease, and aortic balloon pump had to be inserted due to her congestive heart failure and she was transferred to ICU and arrangements were made for her to be transported to a tertiary care center for further treatment. Physical examination: On examination she appeared in good health and spirits. Vital signs as documented. Skin warm and dry and without overt rashes. Neck without JVD. Lungs-inspiratory rales are noted at the lung bases bilaterally. Heart exam notable for regular rhythm, normal sounds and absence of murmurs, rubs or gallops. Abdomen unremarkable and without evidence of organomegaly, masses, or abdominal aortic enlargement. Extremities nonedematous. Neuro: Cranial nerves II through XII are grossly intact, no focal motor deficits were noted, sensation is intact to light touch and pinprick. Psych: Patient is alert, she is mildly confused, she does not appear anxious or depressed On 12/28/17, patient was transported to a tertiary care hospital in stable condition for further treatment. Further note: There was no evidence of pneumonia in this patient during her hospitalization. - Physical Exam Vital Signs Temp Pulse Resp BP Pulse Ox 97.8 F 60 19 H 130/47 H 98 12/28/17 13:15 12/28/17 15:00 12/28/17 15:00 12/28/17 15:00 12/28/17 15:00 Oxygen Flow Rate (L/min) 2 Oxygen Delivery Method Nasal Cannula Weight: 80 kg Body Mass Index (BMI) 32.3 Intake and Output for Last 24 Hours 12/28/17 12/29/17 12/30/17 23:59 23:59 23:59 Intake Total 387 / 387 Output Total 925 / 925 Balance -538 / -538 Microbiology Past 72 Hours 12/27/17 23:20 Blood Culture - Preliminary Blood Culture (Wb) #2 - Left Wrist No growth in 48 hours. 12/27/17 23:20 Blood Culture - Preliminary Blood Culture (Wb) - Anticubital Right No growth in 48 hours. 12/28/17 05:40 Legionella Antigen - Final Urine, Clean Catch 12/28/17 05:40 Streptococcus pneumoniae Antigen (M - Final Urine, Clean Catch Home Medications: Medications to take at Discharge Aspirin [Aspirin EC] 81 mg PO DAILY 12/27/17 Carvedilol 12.5 mg PO DAILY 12/27/17 Cyanocobalamin (Vitamin B-12) [Vitamin B-12] 1 tab PO DAILY 12/27/17 Donepezil HCl [Aricept] 1 tab PO QHS 12/27/17 Gabapentin [Neurontin] 1 tab PO QHS 12/27/17 Lisinopril [Zestril] 1 tab PO DAILY 12/27/17 Memantine HCl 1 tab PO BID 12/27/17 Primary Care Physician: Matthew Ho Chi, MD [Primary Care Provider] - Disposition: Acute care Hospital Minutes spent on discharge:: 35 Patient Condition:: Stable Medical Necessity - Tobacco Use Smoking Status: Former smoker Meaningful Use Info Meaningful Use Diagnoses (Choose all that apply): AMI - AMI Aspirin given w/in 24hrs of arrival?: Yes ASA at discharge?: No Reason ASA not ordered:: Allergy - Patient transfer to tertiary care facility Statins at discharge?: No Reason statins not ordered:: Allergy - Patient transfer to tertiary care facility Jose/ARB at discharge?: No Reason Jose/ARB not ordered:: Allergy - Patient transferred to tertiary care facility Beta [place] at discharge?: No Reason Beta [place] not ordered:: Allergy - Patient transferred to tertiary care facility Done w/ Acute SD measure.: Yes Code Visit Inpatient E&M: 62437 Disch Hosp
== END 2017-12-28 15:00 | disposition short-term general hospital (02) | DRG 270 ==
LOC: ED 23:43 → PCU 12-28 03:04 → ICU 01-01 06:38
PROVIDERS: Internal Medicine Cardiovascular Disease; Admitting Provider Hospitalist; Emergency Provider Emergency Medicine; Family Provider Family Medicine Geriatric Medicine; PCP Family Medicine Geriatric Medicine; Visit Provider Internal Medicine
DX: I21.4 Non-ST elevation (NSTEMI) myocardial infarction (principal); I50.21 Acute systolic (congestive) heart failure; J96.01 Acute respiratory failure with hypoxia; E87.5 Hyperkalemia; Z87.891 Personal history of nicotine dependence; I25.10 Atherosclerotic heart disease of native coronary artery without angina pectoris; I11.0 Hypertensive heart disease with heart failure
CPT/HCPCS: 33967; 36415; 36600; 71045; 71275; 80048; 80061; 82803; 83880; 84484; 85025; 85027; 85379; 85610; 85730; 86738; 87040; 87449; 93005; 93306; 93454; 94002; 94003; 94640; 94667; 94668; 97802; 99152; 99153; 99251; 99285; J7030; J7050; Q9957; Q9967; A4216; C1769; C1894; C8929; G0463; J1940